=== PATIENT | female | born 1935 | race Caucasian/White ===

== ENCOUNTER 2016-10-01 16:15 | Emergency (ER) | payer OTHER ==
--- NOTE | 2016-10-01 18:11 | DIAGNOSTIC IMAGING REPORT ---
PROCEDURE: XR ABD SERIES 2V ABD/1V CHEST INDICATION: VOMITING TECHNIQUE: AP supine and upright views of the abdomen with single view of the chest. COMPARISON: None. FINDINGS: CHEST: Increased right basilar interstitial markings obscuring the right cardiac border. Blunting of the costophrenic angles. Heart size, mediastinum and pulmonary vessels are normal. Tortuous aorta. Osteopenia. ABDOMEN: Mild gaseous distention of several centigrade of a loops of bowel without significant air-fluid levels visible. No evidence of mass or suspicious calcification. Thoracolumbar spine vertebral plasty, left hip arthroplasty and right hip pinning. IMPRESSION: 1. Right middle lobe scarring versus infiltrate 2. Mild gaseous distention of several central loops of bowel, likely small bowel, without significant air-fluid levels. Findings suggest enterocolitis or ileus. Small bowel obstruction is not excluded. 3. Results discussed with Dr. Anand
--- NOTE | 2016-10-01 18:45 | DIAGNOSTIC IMAGING REPORT ---
PROCEDURE: CT ABD/PELVIS WITH CONTRAST CLINICAL INDICATION: ABDOMINAL PAIN TECHNIQUE: 100 ml of Isovue 300 were injected intravenously and axial images were obtained of the entire abdomen and pelvis with sagittal and coronal reformations. COMPARISON: Acute abdominal series 10/01/2016. FINDINGS: ABDOMEN: Right middle and lower lobe bronchiectasis with scarring. Minor right basilar atelectasis. Normal heart size. Right lower quadrant ostomy with apparent complete colectomy. Fluid filled stomach. Normal caliber of the proximal small bowel but mild dilation of the small bowel with air-fluid levels to the level of the ostomy. Normal liver parenchyma. Mild intrahepatic ductal dilation but CBD measures at 6 mm. The gallbladder, pancreas, spleen, adrenal glands and the kidneys are normal. Moderate atherosclerosis of the aorta. PELVIS: Hysterectomy. Normal bladder. No inflammatory changes or free fluid. Left hip arthroplasty and pinning of the right hip. Severe osteopenia with severe L1 compression fracture with vertebroplasty. Moderate central compression fractures of the remaining lumbar vertebrae. IMPRESSION: 1. Right lower quadrant ostomy with apparent complete colectomy. 2. Fluid filled stomach with mild dilation of the distal small bowel to the level of the ostomy. Consider gastroenteritis or mechanical obstruction at the ostomy. 3. Hysterectomy 4. Right middle and lower lobe bronchiectasis with scarring 5. Results discussed with Dr. Anand All CT scans at this facility use dose modulation, iterative reconstruction, and/or weight-based dosing when appropriate to reduce radiation dose to as low as reasonably achievable.
--- NOTE | 2016-10-01 21:33 | ED NURSING NOTES ---
Clinical Report - Nurses [facility] [address] [place] [address] 10/01/2016 16:18 Patient: CAMELIA MENENDEZ TRIAGE Triage time 1618. Acuity: LEVEL 3. Chief Complaint: ABDOMINAL PAIN, NAUSEA and VOMITING. --16:31 Lillian Weston R.N. 16:22 10/01/16. BP: 148/76. HR: 93. RR: 20. O2 saturation: 96%. Temp: 97.6 F. --16:31 Lillian Weston R.N. Weight: 40.8 kg stated. Height/Length: 66 inches Per Patient. BMI: 14.5. --16:23 Lillian Weston R.N. Medications CBD for appetite, daily. --16:27 Lillian Weston R.N. ASA Oral 81mg daily . Metoprolol Succinate ER Oral 25mg takes 1/2 tab daily . Morphine Sulfate Oral (Tablet 15 mg), 3x a day (1 tab prn, usually 1x/day). --16:28 Lillian Weston R.N. Oxycodone prn (about 1x/day) 5mg, 2x a day. --16:30 Lillian Weston R.N. ALBUTEROL 2 PUFFS EVERY 4 HRS NEEDED. --16:52 Briseida, Ruth, ER Tech1 The following entry was struck and corrected by Lillian Weston R.N., 18:23 (10/01/16) Reason for correction - other(correction). <<STRICKEN ENTRY-- Metoprolol Succinate ER Oral 1/2 tab daily . --16:28 Lillian Weston R.N. --END STRIKE>> The following entry was struck and corrected by Lillian Weston R.N., 18:23 (10/01/16) Reason for correction - other(correction). <<STRICKEN ENTRY-- Oxycodone prn (about 1x/day) . --16:30 Lillian Weston R.N. --END STRIKE>> The following entry was struck and corrected by Lillian Weston R.N., 18:22 (10/01/16) Reason for correction - other(correction). <<STRICKEN ENTRY-- Morphine Sulfate Oral (1 tab prn, usually 1x/day). --16:28 Lillian Weston R.N. --END STRIKE>> The following entry was struck and corrected by Lillian Weston R.N., 16:31 (10/01/16) Reason for correction - other(correction). <<STRICKEN ENTRY-- Morphine Sulfate Oral. --16:28 Lillian Weston R.N. --END STRIKE>> The following entry was struck and corrected by Lillian Weston R.N., 16:30 (10/01/16) Reason for correction - other(correction). <<STRICKEN ENTRY-- CBD for appetite. --16:27 Lillian Weston R.N. --END STRIKE>> The following entry was struck and corrected by Lillian Weston R.N., 16:29 (10/01/16) Reason for correction - other(correction). <<STRICKEN ENTRY-- ASA Oral. --16:28 Lillian Weston R.N. --END STRIKE>> The following entry was struck and corrected by Lillian Weston R.N., 16:29 (10/01/16) Reason for correction - other(correction). <<STRICKEN ENTRY-- Metoprolol Succinate ER Oral. --16:28 Lillian Weston R.N. --END STRIKE>>. Allergies Metazapine - confusion, stomach pain . --16:28 Lillian Weston R.N. History Arrived by EMS. Historian: patient and family. Accompanied by family. [facility] Onset. (2 days ago). She has had nausea and vomiting. She has had abdominal pain (LLQ abd pain x 2 days). SURGERY HX: ( iliostomy). SOCIAL HX: Never smoker. History of drug use: marijuana. No alcohol use. --16:31 Lillian Weston R.N. PROBLEMS: Osteoporosis. Colitis. Bowel Obstruction. A-fib. Ostomy. --16:26 Lillian Weston R.N. Interventions ID band on patient. To treatment room. --16:31 Lillian Weston R.N. PHYSICAL ASSESSMENT 16:22. To room via stretcher. Patient gowned. GENERAL / NEURO / PSYCH: Alert. RESPIRATORY: Respirations not labored. CVS: Capillary refill is greater than 2 seconds. GI / : The patient has had nausea. Abdominal tenderness. SKIN: Skin is warm and dry. --16:33 Lillian Weston R.N. NURSING PROGRESS NOTES 16:22. Patient gowned. Head of bed elevated. Reassurance given. Patient identifiers checked. Call light placed in reach. Side rails up. Bed placed in lowest position. Patient ready for evaluation- chart flagged. --16:33 Lillian Weston R.N. 16:25 10/01/2016 Zofran ODT (Ondansetron) PO Oral Disintegrating Tablets 4 mg given. Allergies verified and confirmed 5 rights. --16:35 Lillian Weston R.N. 16:40 10/01/2016 Site #1 started via IV in the left forearm with an 24g angiocath, with aseptic technique and good blood return. Blood drawn: rainbow set. Labeled in the presence of the patient and sent to the lab. Saline lock flushed with saline. --17:00 Lillian Weston R.N. 17:35 10/01/2016 Started bag #1 1000 mL IV Fluids IV NS (Saline); at 1000 mL/hr over 1 hour(s) via site #1 via IV pump. IV patency established. IV site checked: no pain, redness, or swelling. IV flushed thoroughly pre- and post-medication administration. --17:41 Lillian Weston R.N. 17:43 10/01/2016 Dilaudid (HYDROmorphone HCl PF) IVP 0.5 mg given over 1 minute(s) via site #1. IV patency established. IV site checked: no pain, redness, or swelling. IV flushed thoroughly pre- and post-medication administration. IVP given by RN. --17:43 Lillian Weston R.N. 16:40 IV started, bloods to lab. --18:06 Lillian Weston R.N. 17:35. ( iliostomy bag drained of 600cc brownish tinged fluid). --18:07 Lillian Weston R.N. 17:50. 10 fr in/out catheterization. Return of less than 50 mL orange-colored clear urine. She tolerated procedure well. --18:07 Lillian Weston R.N. 18:00 10/01/16. BP: 134/90. HR: 85. RR: 20. O2 saturation: 94% on room air. Temp: deferred. Pain level now: 09/10. Additional comments: pt still c/o nausea, ERMD notified. --18:10 Lillian Weston R.N. 18:15 10/01/16. BP: 134/90. HR: 86. RR: 19. O2 saturation: 97%. Temp: 97.7 F. --18:15 Jose Albright, Tech1 18:00 10/01/2016 Zofran (Ondansetron HCl) IVP 4 mg given over 1 minute(s) via site #1. IV patency established. IV site checked: no pain, redness, or swelling. IV flushed thoroughly pre- and post-medication administration. IVP given by RN. --18:25 Lillian Weston R.N. 18:20 10/01/16. Patient transported to [place] by stretcher with tech. --18:20 Lillian Weston R.N. 18:35 10/01/16. Patient returned from CT by stretcher with tech. --18:35 Lillian Weston R.N. 19:15 10/01/16. BP: 122/63. HR: 82. RR: 18. O2 saturation: 96% on room air. Temp: deferred. Pain level now: 09/10. --19:51 Enrico, Lillian, R.N. 20:30. ( Pt placed on bedpan 350cc out). --20:42 Lillian Weston R.N. 21:20 10/01/16. BP: 131/82. HR: 80. RR: 20. O2 saturation: 95%. Temp: deferred. Pain level now: 09/10. Additional comments: pt still having some nausea, ERMD at bedside talking with family about findings and follow up additional 200cc out of illiostomy bag . --21:31 Lillian Weston R.N. 21:00 10/01/2016 IV Fluids IV NS Discontinued: bag #1 infused upon discharge. Total amount infused: 1000 mL. IV patency established. IV site checked: no pain, redness, or swelling. IV flushed thoroughly. (converted to saline lock). --21:33 Lillian Weston R.N. 21:20 10/01/2016 PHENERGAN (Promethazine HCl) IVP 12.5 mg given over 1 minute(s) via site #1. IV patency established. IV site checked: no pain, redness, or swelling. IV flushed thoroughly pre- and post-medication administration. IVP given by RN. --21:32 Lillian Weston R.N. 21:40 10/01/2016 Site #1 removed upon discharge. Pressure dressing applied. --22:07 Lillian Weston R.N. Intake & Output Urine: 175 mL bed james, with return of yellow-colored urine. --20:36 Tarik Gracia R.N. DISPOSITION / DISCHARGE 21:45. Condition at departure: improved and stable. No learning barriers present. Discharge instructions provided and reviewed with the patient and family. Reviewed medication(s) (zofran). Patient and family verbalized understanding. Written instructions provided in Guinean. The patient was discharged home and accompanied by family. She left the Emergency Department in a wheelchair and via private vehicle. Driving (son in law). --22:06 Lillian Weston R.N. 21:45 10/01/16. BP: 128/80. HR: 82. RR: 20. O2 saturation: 96%. Temp: deferred. Pain level now: 09/10. --22:06 Lillian Weston R.N. Locked/Released at 10/01/2016 22:07 by Lillian Weston R.N.
--- NOTE | 2016-10-01 21:33 | ED CLINICAL REPORT ---
Clinical Report - Physicians/Mid Levels [facility] [address] [place] [address] 10/01/2016 16:18 Patient: CAMELIA MENENDEZ Time Seen: 16:22. Arrived- By ambulance. Historian- patient and EMS personnel. HISTORY OF PRESENT ILLNESS Chief Complaint: ABDOMINAL PAIN and VOMITING. At its maximum, severity described as moderate. When seen in the E.D., severity described as moderate. Modifying factors- worsened by food. Not relieved by anything. It is described as "pain" and it is described as located in the left lower quadrant. This started 2 days ago and is still present. The patient has had nausea, loss of appetite and vomiting. She has had diarrhea (Pt has had watery output into ileostomy bag.). Similar symptoms previously: Recent medical care: Not recently seen/assessed. REVIEW OF SYSTEMS No constipation, black stools, hematemesis, difficulty with urination or pain with urination. No urinary frequency, bloody stools, fever, headache or sore throat. No blurred vision, chest pain, difficulty breathing, cough or joint pain. No skin rash or chills. The patient has had back pain. All systems otherwise negative, except as recorded above. PAST HISTORY Problems: Osteoporosis. Colitis. Bowel Obstruction. A-fib. Ostomy. Additional Surgeries: Ileostomy. Medications: Oxycodone prn (about 1x/day) . ASA Oral 81mg daily . Metoprolol Succinate ER Oral 1/2 tab daily . Morphine Sulfate Oral (1 tab prn, usually 1x/day). CBD for appetite, daily. Allergies: Metazapine - confusion, stomach pain . SOCIAL HISTORY Never smoker. History of drug use medical: marijuana. No alcohol use. ADDITIONAL NOTES The nursing notes have been reviewed. PHYSICAL EXAM Vital Signs: 10/01/2016 16:22 BP: 148/76. HR: 93. RR: 20. O2 saturation: 96%. Temp: 97.6 F. Have been reviewed. Appearance: Alert. No acute distress. (Patient answers questions appropriately.). Eyes: Pupils equal, round and reactive to light. Eyes normal inspection. ENT: Nose normal. Neck: Normal inspection. CVS: Normal heart rate and rhythm. Heart sounds normal. Pulses normal. Respiratory: No respiratory distress. Breath sounds normal. Abdomen: Soft. Moderate tenderness in the left lower quadrant. No guarding or rebound tenderness. No organomegaly. No mass. (Patient has an ileostomy bag full of watery output.). Back: (Patient has mild tenderness across her bilateral lumbar paraspinal area.). Skin: Skin warm and dry. Normal skin color. No rash. Normal skin turgor. Extremities: Extremities exhibit normal ROM. No lower extremity edema. Neuro: (Patient is grossly intact neurologically.). LABS, X-RAYS, AND EKG Abdominal CT: Normal aorta. Normal liver, spleen, pancreas, gallbladder and adrenals. Normal kidneys. Bladder normal. No mass. No free fluid. No bony lesion. No diverticulitis. Study type: abdomen and pelvis. Abdominal CT performed with IV contrast. The study was independently viewed by me, interpreted by the radiologist and contemporaneously by me and discussed with the radiologist. Laboratory Tests: CBC w Diff: (CAREN: 10/01/2016 16:40) ( [facility]09[facility] Final results Test Result Flag Units (Reference) WHITE BLOOD COUNT 13.1 H K/uL (4.5-11.5) RED BLOOD COUNT 5.08 M/uL (4.00-5.20) HEMOGLOBIN 15.4 gm/dL (12.0-16.0) HEMATOCRIT 46.5 H % (36.0-46.0) MEAN CELL VOLUME 92 fL (80-100) MEAN CORPUSCULAR HGB 30 pg (26-34) MEAN CORPUSCULAR HGB CONC 33 g/dL (31-37) RED CELL DISTRIBUTION WIDTH 13.4 % (11.6-14.8) PLATELET COUNT 289 K/uL (150-400) NEUTROPHIL % 92.1 H % (50-75) LYMPH % 6.0 L % (25-40) MONO % 1.8 L % (3-14) EOSINOPHIL % 0.1 % (0-4) BASOPHIL % 0 % (0-2) CMP: (CAREN: 10/01/2016 16:40) ( MsgRcvd 10/01/2016 17:25) Final results Test Result Flag Units (Reference) GLUCOSE 144 H mg/dL (70-110) BUN 22 H mg/dL (7-18) CREATININE 0.9 mg/dL (0.6-1.3) Estimated GFR >60 mL/min Estimated GFR- >60 mL/min Note: Persistent reduction over 3 months in eGFR<60 mL/min/1.73 m2 defines CKD. Patients with eGFR values>=60 mL/min/1.73 m2 may also have CKD if evidence ofpersistent proteinuria. Additional information may be foundat www.kidney.org. SODIUM 143 mmol/L (136-145) POTASSIUM 4.0 mmol/L (3.5-5.1) CHLORIDE 105 mmol/L (98-107) CARBON DIOXIDE 25 mmol/L (21-32) CALCIUM 10.4 H mg/dL (8.5-10.1) TOTAL PROTEIN 10.0 H g/dL (6.4-8.2) ALBUMIN 3.6 g/dL (3.3-5.0) BILIRUBIN, TOTAL 0.5 mg/dL (0.0-1.0) ALKALINE PHOSPHATASE 81 U/L (46-116) AST (SGOT) 22 U/L (15-37) ALT (SGPT) 24 U/L (12-78) . Pulse Oximetry: 10/01/2016 16:22 O2 saturation: 96%. (FIO2 - room air). Interpretation: normal. PROGRESS AND PROCEDURES Course of Care: Patient was given a liter of normal saline, as well as Dilaudid for her symptoms. She had already been given oral dissolving Zofran at the time of my evaluation. Patient was worked up with CBC, which showed a mild leukocytosis. Comprehensive metabolic panel was unremarkable. CT scan showed findings consistent with gastroenteritis versus an earlybowel obstruction. Given the patient's copious output into her ileostomy bag, as well as her improvement in symptoms with the output, I felt that the early bowel obstruction was unlikely, and inconsistent with the findings on history and exam. Patient's symptoms did sound more in line with gastroenteritis. I have discussed this with the patient. No emergent condition has been identified at this time. Patient counseled in person regarding the patient's stable condition, test results, diagnosis and need for follow-up. Concerns were addressed. Old medical records reviewed. Disposition: Discharged. Condition: stable and improved. CLINICAL IMPRESSION Acute viral gastroenteritis. INSTRUCTIONS Take clear liquids only (frequent sips; plenty of fluids) for the next 12 hours until better. Advance diet as tolerated. Warnings: GENERAL WARNINGS: Return or contact your physician immediately if your condition worsens or changes unexpectedly, if not improving as expected, or if other problems arise. Your Current Medications: CONTINUE TAKING THE FOLLOWING MEDICATIONS: ALBUTEROL 2 PUFFS EVERY 4 HRS NEEDED*. ASA Oral : 81mg daily. CBD for appetite* : daily. Metoprolol Succinate ER Oral : 25mg takes 1/2 tab daily. Morphine Sulfate Oral : Tablet 15 mg, 3x a day, 1 tab prn, usually 1x/day. Oxycodone prn (about 1x/day) * : 5mg 2x a day. Prescription Medications: Zofran (orally disintegrating tablets) 4 mg: take 1-2 orally every 6 hours as needed for nausea. Dispense twenty (20). No refill. Substitution is permissible. Follow-up: Follow up with your doctor in four days if not better. Understanding of the discharge instructions verbalized by patient and family. (Electronically signed by Nsareen Anand MD 10/09/2016 10:51)
--- NOTE | 2016-10-01 21:33 | ED ORDER SUMMARY ---
..... Patient: CAMELIA MENENDEZ OrderSheet [facility] VisitID: [id number] [address] [place] [address] 81y, F Registration Date/Time: 10/01/2016 ORDER SHEET Weight: 40.8 kg (stated) Allergies: Metazapine - confusion, stomach pain GENERAL ORDERS: Abd Series 2V Abd/1V Chest Urgent (16:40 10/01/2016 Sylvester JENKINS) (Ack 16:43 LNations ER Tech1) (17:20 LNations ER Tech1) CMP Urgent (16:41 10/01/2016 Sylvester JENKINS) (Ack 16:43 LNations ER Tech1) (17:03 DDean R.N.) UA-Culture if indicated Urgent (16:41 10/01/2016 Sylvester JENKINS) (Ack 16:43 LNations ER Tech1) (18:08 DDean R.N.) CBC w Diff Urgent (16:41 10/01/2016 Sylvester JENKINS) (Ack 16:43 LNations ER Tech1) (17:03 DDean R.N.) CT Abd/Pel w Cont (No) (N/A) Urgent (18:10 10/01/2016 Sylvester JENKINS) (Ack 18:16 LNations ER Tech1) (18:25 LNations ER Tech1) MEDICATION ORDERS: Zofran ODT PO 4 mg (NOW) (16:35 10/01/2016 DDean R.N. per protocol) (16:35 DDean R.N.) Phenergan IV 12.5 mg (HIGH ALERT MEDICATION, NOW) (21:24 10/01/2016 Sylvester JENKINS) (21:32 DDean R.N.) IV FLUIDS: IV NS : initial bolus 1000 mL (1000 mL/hr), then none - (NOW) (16:40 10/01/2016 Sylvester JENKINS) (Ack 17:03 DDean R.N.) (17:41 DDean R.N.) Dilaudid IV 0.5 mg (HIGH ALERT MEDICATION, NOW) (16:40 10/01/2016 Sylvester JENKINS) (Ack 17:03 DDean R.N.) (17:43 DDean R.N.) Zofran IV 4 mg (NOW) (18:24 10/01/2016 Dina Rizvi. verbal order read back to Sylvester JENKINS) (18:25 DDlexx Welch) ORDER SHEET NOTES: [Electronically signed by Lillian Weston R.N. (22:07 10/01/2016)] [Electronically signed by Nasreen Anand MD (10:51 10/09/2016)] [Electronically locked/signed by Lillian Weston R.N. (22:07 10/01/2016)]
--- NOTE | 2016-10-01 21:33 | ED ORDER SUMMARY ---
..... Patient: CAMELIA MENENDEZ OrderSheet [facility] VisitID: [id number] [address] [place] [address] 81y, F Registration Date/Time: 10/01/2016 ORDER SHEET Weight: 40.8 kg (stated) Allergies: Metazapine - confusion, stomach pain GENERAL ORDERS: Abd Series 2V Abd/1V Chest Urgent (16:40 10/01/2016 Sylvester JENKINS) (Ack 16:43 LNations ER Tech1) (17:20 LNations ER Tech1) CMP Urgent (16:41 10/01/2016 Sylvester JENKINS) (Ack 16:43 LNations ER Tech1) (17:03 DDean R.N.) UA-Culture if indicated Urgent (16:41 10/01/2016 Sylvester JENKINS) (Ack 16:43 LNations ER Tech1) (18:08 DDean R.N.) CBC w Diff Urgent (16:41 10/01/2016 Sylvester JENKINS) (Ack 16:43 LNations ER Tech1) (17:03 DDean R.N.) CT Abd/Pel w Cont (No) (N/A) Urgent (18:10 10/01/2016 Sylvester JENKINS) (Ack 18:16 LNations ER Tech1) (18:25 LNations ER Tech1) MEDICATION ORDERS: Zofran ODT PO 4 mg (NOW) (16:35 10/01/2016 DDean R.N. per protocol) (16:35 DDean R.N.) Phenergan IV 12.5 mg (HIGH ALERT MEDICATION, NOW) (21:24 10/01/2016 Sylvester JENKINS) (21:32 DDean R.N.) IV FLUIDS: IV NS : initial bolus 1000 mL (1000 mL/hr), then none - (NOW) (16:40 10/01/2016 Sylvester JENKINS) (Ack 17:03 DDean R.N.) (17:41 DDean R.N.) Dilaudid IV 0.5 mg (HIGH ALERT MEDICATION, NOW) (16:40 10/01/2016 Sylvester JENKINS) (Ack 17:03 DDean R.N.) (17:43 DDean R.N.) Zofran IV 4 mg (NOW) (18:24 10/01/2016 Dina Rizvi. verbal order read back to Sylvester JENKINS) (18:25 DDlexx Welch) ORDER SHEET NOTES: [Electronically signed by Lillian Weston R.N. (22:07 10/01/2016)] [Electronically signed by Nasreen Anand MD (10:51 10/09/2016)] [Electronically locked/signed by Lillian Weston R.N. (22:07 10/01/2016)]
--- NOTE | 2016-10-09 10:51 | ED MAR SUMMARY ---
..... Medication Administration Record [facility] [address] [place] [place] [address] Patient: CAMELIA MENENDEZ Visit ID: [id number] 81y, F Weight: 40.8 kg Height/Length: 66 in BMI: 14.5 ALLERGIES: Metazapine - confusion, stomach pain Given 16:25 10/01/2016 Lillian Weston R.N. Medication Administered: ZOFRAN ODT [PO] (ONDANSETRON), Dose: 4 mg Oral Disintegrating Tablets PO. Medication Ordered: Zofran ODT PO 4 mg (NOW). Start 17:35 10/01/2016 Lillian Weston R.N., Stop 21:00 10/01/2016 Lillian Weston R.N. Medication Administered: IV NS (SALINE), Dose: IV Fluids over 1 hour(s), Rate: 1000 mL/hr, Dispensed: 1000 mL bag, Site: #1 left forearm. Medication Ordered: IV NS : initial bolus 1000 mL (1000 mL/hr), then none - (NOW). Given 17:43 10/01/2016 Lillian Weston R.N. Medication Administered: DILAUDID [IVP] (HYDROMORPHONE HCL PF), Dose: 0.5 mg IVP over 1 minute(s), Site: #1 left forearm. Medication Ordered: Dilaudid IV 0.5 mg (HIGH ALERT MEDICATION, NOW). Given 18:00 10/01/2016 Lillian Weston R.N. Medication Administered: ZOFRAN [IVP] (ONDANSETRON HCL), Dose: 4 mg IVP over 1 minute(s), Site: #1 left forearm. Medication Ordered: Zofran IV 4 mg (NOW). Given 21:20 10/01/2016 Lillian Weston R.N. Medication Administered: PHENERGAN [IVP] (PROMETHAZINE HCL), Dose: 12.5 mg IVP over 1 minute(s), Site: #1 left forearm. Medication Ordered: Phenergan IV 12.5 mg (HIGH ALERT MEDICATION, NOW).
--- NOTE | 2016-10-09 10:51 | ED MAR SUMMARY ---
..... Medication Administration Record [facility] [place] [facility] [address] [place] [address] Patient: CAMELIA MENENDEZ Visit ID: [id number] 81y, F Weight: 40.8 kg Height/Length: 66 in BMI: 14.5 ALLERGIES: Metazapine - confusion, stomach pain Given 16:25 10/01/2016 Lillian Weston R.N. Medication Administered: ZOFRAN ODT [PO] (ONDANSETRON), Dose: 4 mg Oral Disintegrating Tablets PO. Medication Ordered: Zofran ODT PO 4 mg (NOW). Start 17:35 10/01/2016 Lillian Weston R.N., Stop 21:00 10/01/2016 Lillian Weston R.N. Medication Administered: IV NS (SALINE), Dose: IV Fluids over 1 hour(s), Rate: 1000 mL/hr, Dispensed: 1000 mL bag, Site: #1 left forearm. Medication Ordered: IV NS : initial bolus 1000 mL (1000 mL/hr), then none - (NOW). Given 17:43 10/01/2016 Lillian Weston R.N. Medication Administered: DILAUDID [IVP] (HYDROMORPHONE HCL PF), Dose: 0.5 mg IVP over 1 minute(s), Site: #1 left forearm. Medication Ordered: Dilaudid IV 0.5 mg (HIGH ALERT MEDICATION, NOW). Given 18:00 10/01/2016 Lillian Weston R.N. Medication Administered: ZOFRAN [IVP] (ONDANSETRON HCL), Dose: 4 mg IVP over 1 minute(s), Site: #1 left forearm. Medication Ordered: Zofran IV 4 mg (NOW). Given 21:20 10/01/2016 Lillian Weston R.N. Medication Administered: PHENERGAN [IVP] (PROMETHAZINE HCL), Dose: 12.5 mg IVP over 1 minute(s), Site: #1 left forearm. Medication Ordered: Phenergan IV 12.5 mg (HIGH ALERT MEDICATION, NOW).
--- NOTE | 2016-10-09 10:51 | ED MED RECONCILIATION SUMMARY ---
Patient: CAMELIA MENENDEZ Medication Reconciliation Report [facility] VisitID: [id number] [address] [place] [address] 81y, F Registration Date/Time: 10/01/2016 Weight: 40.8 kg Height/Length: 66 in. BMI: 14.5 ALLERGIES: Metazapine - confusion, stomach pain The patient's Home Medications are listed below: CONTINUE TAKING THE FOLLOWING MEDICATIONS: ALBUTEROL 2 PUFFS EVERY 4 HRS NEEDED ASA Oral 81mg daily CBD for appetite, daily Metoprolol Succinate ER Oral 25mg takes 1/2 tab daily Morphine Sulfate Oral (15 mg), 3x a day, 1 tab prn, usually 1x/day Oxycodone prn (about 1x/day) 5mg, 2x a day The source(s) of the original Home Medication information: Not obtained. The following Medications were given to the patient in the Emergency Department: Zofran ODT [PO] PO 4 mg, administered: 10/01/2016 4:25:00 PM IV NS IV Fluids bolus 0, then 1000 mL/hr, administered: 10/01/2016 5:35:00 PM Dilaudid [IVP] IVP 0.5 mg, administered: 10/01/2016 5:43:00 PM Zofran [IVP] IVP 4 mg, administered: 10/01/2016 6:00:00 PM PHENERGAN [IVP] IVP 12.5 mg, administered: 10/01/2016 9:20:00 PM The following Medications were prescribed to the patient: Zofran (orally disintegrating tablets) 4 mg: take 1-2 orally every 6 hours as needed for nausea. Dispense twenty (20). No refill. Substitution is permissible. -- Nasreen Anand MD
--- NOTE | 2016-10-09 10:51 | ED MED RECONCILIATION SUMMARY ---
Patient: CAMELIA MENENDEZ Medication Reconciliation Report [facility] VisitID: [id number] [address] [place] [address] 81y, F Registration Date/Time: 10/01/2016 Weight: 40.8 kg Height/Length: 66 in. BMI: 14.5 ALLERGIES: Metazapine - confusion, stomach pain The patient's Home Medications are listed below: CONTINUE TAKING THE FOLLOWING MEDICATIONS: ALBUTEROL 2 PUFFS EVERY 4 HRS NEEDED ASA Oral 81mg daily CBD for appetite, daily Metoprolol Succinate ER Oral 25mg takes 1/2 tab daily Morphine Sulfate Oral (15 mg), 3x a day, 1 tab prn, usually 1x/day Oxycodone prn (about 1x/day) 5mg, 2x a day The source(s) of the original Home Medication information: Not obtained. The following Medications were given to the patient in the Emergency Department: Zofran ODT [PO] PO 4 mg, administered: 10/01/2016 4:25:00 PM IV NS IV Fluids bolus 0, then 1000 mL/hr, administered: 10/01/2016 5:35:00 PM Dilaudid [IVP] IVP 0.5 mg, administered: 10/01/2016 5:43:00 PM Zofran [IVP] IVP 4 mg, administered: 10/01/2016 6:00:00 PM PHENERGAN [IVP] IVP 12.5 mg, administered: 10/01/2016 9:20:00 PM The following Medications were prescribed to the patient: Zofran (orally disintegrating tablets) 4 mg: take 1-2 orally every 6 hours as needed for nausea. Dispense twenty (20). No refill. Substitution is permissible. -- Nasreen Anand MD
--- NOTE | 2016-10-09 10:51 | ED DISCHARGE INSTRUCTIONS ---
Patient: CAMELIA MENENDEZ General Instructions [facility] VisitID: [id number] [place] [address] 81y, F Registration Date/Time: 10/01/2016 Acute viral gastroenteritis. INSTRUCTIONS Take clear liquids only (frequent sips; plenty of fluids) for the next 12 hours until better. Advance diet as tolerated. Warnings: GENERAL WARNINGS: Return or contact your physician immediately if your condition worsens or changes unexpectedly, if not improving as expected, or if other problems arise. Your Current Medications: CONTINUE TAKING THE FOLLOWING MEDICATIONS: ALBUTEROL 2 PUFFS EVERY 4 HRS NEEDED*. ASA Oral : 81mg daily. CBD for appetite* : daily. Metoprolol Succinate ER Oral : 25mg takes 1/2 tab daily. Morphine Sulfate Oral : Tablet 15 mg, 3x a day, 1 tab prn, usually 1x/day. Oxycodone prn (about 1x/day) * : 5mg 2x a day. Prescription Medications: Zofran (orally disintegrating tablets) 4 mg: take 1-2 orally every 6 hours as needed for nausea. Dispense twenty (20). No refill. Substitution is permissible. Follow-up: Follow up with your doctor in four days if not better. Understanding of the discharge instructions verbalized by patient and family. ADDITIONAL INFORMATION Viral Gastroenteritis (6Yr-Adult) Gastroenteritis is another name for thestomach flu.It is most often caused by a virus that affects the stomach and intestinal tract. Symptoms include stomach cramping and fever, vomiting and/or diarrhea, and can last from 2 to 7 days. The danger from repeated vomiting or diarrhea is dehydration. This is the loss of too much water and minerals from the body. When this occurs, body fluids must be replaced. Antibiotics are not effective for this illness, but simple home treatment will be helpful. Home Care If symptoms are severe, rest at home for the next 24 hours. Avoid tobacco, caffeine, and alcohol use, which can worsen symptoms. Acetaminophen (Tylenol) or ibuprofen (Motrin, Advil) may be usedfor fever or pain unless another medication was prescribed. NOTE: If you have chronic liver or kidney disease or ever had a stomach ulcer or GI bleeding, talk with your doctor before using these medicines. Aspirin should never be used in anyone under 18 years of age who is ill with a fever. It may cause severe liver damage. If medicines for diarrhea or vomiting were prescribed, be sure they are takenonly as directed. If vomiting, drink small amounts of clear fluids (such as water, sports drinks, clear sodas) at frequent intervals to prevent dehydration. Start with 1 to 2 tablespoons every 10 minutes. Once vomiting stops, follow these guidelines: During The First 12 To 24 Hours follow the diet below: Beverages: Sport drinks like Gatorade, soft drinks without caffeine; dusty enma, mineral water (plain or flavored), decaffeinated tea and coffee. Soups: Clear broth, consomm and bouillon Desserts: Plain gelatin (Jell-O), Popsicles and fruit juice bars. During The Next 24 Hours you may add the following to the above: Hot cereal, plain toast, bread, rolls, crackers Plain noodles, rice, mashed potatoes, chicken noodle or rice soup Unsweetened canned fruit (avoid pineapple), bananas Limit fat intake to less than 15 grams per day by avoiding margarine, butter, oils, mayonnaise, sauces, gravies, fried foods, peanut butter, meat, poultry, and fish. Limit fiber; avoid raw or cooked vegetables, fresh fruits (except bananas), and bran cereals. Limit caffeine and chocolate. Do not use spices or seasonings except salt. During The Next 24 Hours The patient can gradually resume a normal diet as symptoms lessen. Preventing Spread Hand washing with soap and water is the best way to prevent the spread of viruses. Caregivers should wash their hands before andafter touching the sick person. The sick person, as well as everyone in the family,should wash their hands after using the toilet and before meals. Clean the toilet after each use. People with diarrhea should not prepare food for others. If you are preparing your own foods, wash your hands before and after. Follow Up with your doctor as advised. Call your doctor if you are not improving over the next 2 to 3 days. If a stool (diarrhea) sample was taken, you may call in 2 days (or as directed) for the results. Get Prompt Medical Attention if any of the following occur: Increasing abdominal pain Continued vomiting (unable to keep liquids down) Frequent diarrhea (more than 5 times a day) Blood in vomit or stool (black or red color) Dark urine, reduced urine output, or extreme thirst Weakness, dizziness, fainting Drowsiness, confusion, stiff neck, or seizure Fever of 100.4F (38C) oral or higher, not better with fever medication New rash Clear Liquid Diet Clear liquids are any liquid that you can see through as well as those that are very easy to digest. This is used while the body is recovering from irritation or infection of the stomach or intestinal tract. It may also be used before special procedures or surgery. This diet is to be used no more than three days. You may include the following items. Adults Adults should drink a total of 23 quarts of liquid per day. It may be easier to drink small frequent servings rather than a few large ones. Liquids can include: Fruit juices.Strained orange juice or lemonade (no pulp), apple, grape and cranberry juice, clear fruit drinks, sports drinks Beverages.Sport drinks, sodas, mineral water (plain or flavored), tea, black coffee, liquid gelatin (add twice the recommended amount of water) Soups.Clear broth, consomm, bouillon Desserts.Plain gelatin, popsicles, fruit juice bars Children Over 2 years old The following liquids are acceptable for children over age 2: Fruit juices.Strained orange juice or lemonade (no pulp), apple, grape and cranberry juice, clear fruit drinks Beverages. Sports drinks, sodas, mineral water (plain or flavored), tea, liquid gelatin (add twice the recommended amount of water) Soups. Clear broth, consomm, bouillon Desserts. Plain gelatin, popsicles, fruit juice bars Children under 2 years old Oral rehydration fluids such are available at drug stores and most grocery stores without a prescription. You have been given the following additional information: Gastroenteritis, Viral (6Y-Adult) Diet, Clear Liquid (Electronically signed by Nasreen Anand MD 10/09/2016 10:51)
== END 2016-10-01 21:45 | disposition home or self-care (01) ==
LOC: ED SRH 16:15
DX: A08.4 Viral intestinal infection, unspecified (principal); Z93.2 Ileostomy status; I48.91 Unspecified atrial fibrillation; Z79.891 Long term (current) use of opiate analgesic; Z79.82 Long term (current) use of aspirin; Z79.899 Other long term (current) drug therapy; Z88.8 Allergy status to other drugs, medicaments and biological substances
CPT/HCPCS: 81460; 90004; 90074; 90100; 95059